=== PATIENT | female | born 1935 | race Caucasian/White ===

== ENCOUNTER 2017-01-14 09:40 | Emergency (ER) | payer MEDICARE, OTHER ==
[~2017-01-14] VITALS: Ht 165.1 cm; Wt 66.8 kg
[~2017-01-14 09:40] MED LIST: ASPI-557 PO; ATOR40TA64 PO; CARV3.123 PO; CLOP75TA33 PO; DIPH1TAB24 PO; LISI-625 PO; PREN1TAB26 PO; RANI150T7 PO
[2017-01-14 09:43] VITALS: Ht 165.1 cm; Wt 66.8 kg
--- OUTSIDE RECORDS SUMMARY | 2017-01-14 09:45 | XMS REPORT | Continuity of care Document ---
Author Author GENERATED, SYSTEM Organization Unknown Address Unknown Phone Unavailable Purpose Hospital Course Allergies, Adverse Reactions, Alerts * Demerol causes Nausea. * Penicillins causes Swelling/Edema. * No Latex Allergy. * No IV Contrast Allergy. Problems * Cardiomyopathy Status:Active. * Coronary Angioplasty Status:Active. Procedures No relevant procedures performed. Medication It is the responsibility of the patient or patient marketing development representative to confirm the list of medications with either the patient's personal care provider or the patient's follow-up care provider to ensure the patient has an appropriate list of medications to take at home. Take These Medications* aspirin 81 mg tablet,chewable, Ordered By: SUZIE RITTER APRN Directions: 1 tablet oral daily * carvedilol 3.125 mg Tablet, Ordered By: SUZIE RITTER APRN Directions: 1 tablet oral twice a day * atorvastatin 40 mg Tablet, Ordered By: SUZIE RITTER APRN Directions: 1 tablet oral daily * clopidogrel 75 mg Tablet, Ordered By: SUZIE RITTER APRN Directions: 1 tablet oral daily * lisinopril 5 mg Tablet, Ordered By: SUZIE RITTER APRN Directions: 1 tablet oral daily Stop Taking These Medications* None Results Chemistry from 01/21/2014 4:06 AMANION GAP 5.6 MMOL/L L (8.0-16.0 MMOL/L) BUN/CREATININE RATIO 24.5 H (9.1-17.0 ) BUN 25 MG/DL H (7-18 MG/DL) CALCIUM 9.7 MG/DL (8.5-10.1 MG/DL) CHLORIDE 108 MMOL/L H (98-107 MMOL/L) CREATININE 1.02 MG/DL H (0.43-0.83 MG/DL) GFRA EST AFR AMER 60 ML/MIN GFR EST NON AFR ALGERIAN 52 ML/MIN GLUCOSE 112 MG/DL H (65-99 MG/DL) POTASSIUM 4.0 MMOL/L (3.5-5.1 MMOL/L) SODIUM 138 MMOL/L (136-145 MMOL/L) TCO2 24.4 MMOL/L (21.0-32.0 MMOL/L) Hematology from 01/21/2014 4:06 AMHEMATOCRIT 31.8 % (31.2-41.9 %) HEMOGLOBIN 10.8 G/DL L (11.0-14.3 G/DL) MCH 28.7 PG (27.0-33.0 PG) MCHC 34.0 G/DL (32.0-36.0 G/DL) MCV 84.4 FL (79.0-98.0 FL) MPV 8.2 FL (7.4-10.4 FL) PLATELET 151 X10e3/UL L (159-386 X10e3/UL) RBC 3.77 X10e6/UL (3.63-4.92 X10e6/UL) RDW 14.0 % (12.3-17.0 %) WBC 7.2 X10e3/UL (3.6-11.2 X10e3/UL) ABSOLUTE BASOPHILS 0.0 X10e3/UL (0.0-0.2 X10e3/UL) AUTOMATED DIFF PERFORMED ABSOLUTE EOSINOPHILS 0.2 X10e3/UL (0.0-0.5 X10e3/UL) ABSOLUTE LYMPHOCYTES 2.6 X10e3/UL (1.0-3.0 X10e3/UL) ABSOLUTE MONOCYTES 0.6 X10e3/UL (0.3-1.0 X10e3/UL) ABSOLUTE NEUTROPHILS 3.8 X10e3/UL (1.8-7.8 X10e3/UL) BASOPHILS 0.5 % EOSINOPHILS 2.1 % LYMPHOCYTES 36.7 % MONOCYTES 8.2 % SEGS 52.5 %
--- OUTSIDE RECORDS SUMMARY | 2017-01-14 09:45 | XMS REPORT | Continuity of care Document ---
Author Author GENERATED, SYSTEM Organization Unknown Address Unknown Phone Unavailable Purpose Hospital Course Allergies, Adverse Reactions, Alerts * Demerol causes Nausea. * Penicillins causes Swelling/Edema. * No Latex Allergy. * No IV Contrast Allergy. Problems No relevant problems exist. Procedures No relevant procedures performed. Medication It is the responsibility of the patient or patient inside outside sales representative to confirm the list of medications with either the patient's personal care provider or the patient's follow-up care provider to ensure the patient has an appropriate list of medications to take at home. Take These Medications* aspirin 81 mg tablet,chewable, Ordered By: CARRI MILLER MD Directions: 1 tablet oral daily * carvedilol 3.125 mg Tablet, Ordered By: CARRI MILLER MD Directions: 1 tablet oral twice a day * lisinopril 5 mg Tablet, Ordered By: CARRI MILLER MD Directions: 1 tablet oral daily * clopidogrel 75 mg Tablet Directions: 1 tablet oral daily Stop Taking These Medications* multi-vitamin oral 1 tablet daily 01/05/14 * omeprazole 20 mg capsule,delayed release(DR/EC) Directions: 1 capsule oral daily before breakfast Results
--- OUTSIDE RECORDS SUMMARY | 2017-01-14 09:45 | XMS REPORT | Continuity of Care Document ---
Author Author [facility] Organization [facility] Address Unknown Phone Unavailable Support Name Relationship Address Phone SHAWN NAPIER MD Caregiver [address] [place] [address] [address] [place] [address] Unavailable MEGGAN OLIVEIRA DO Caregiver [address] [place] [address] [address] [place] [address] Unavailable JUSTINAMANDA BARTONA Next Of Kin [address] [place] [id number] Insurance Providers Guarantor Wojciech Lind Address [address] [place] [address] Email DENIED 16 Payer Medicare Policy Number [id number] Subscriber's Name Wojciech Lind Relationship 18 Self Payer Other A Insurance Policy Number [id number] Subscriber's Name Wojciech Lind Relationship 18 Self Group Number [id number] Directives Directive Response Recorded Date/Time Ordered Resuscitation Status Full Code 11/14/16 8:54am Resuscitation Documents on File No 11/14/16 11:59am DPOA for Healthcare Only No 11/14/16 11:59am Living Will No 11/14/16 11:59am Problems Active Problems Medical Problem Onset Date Status Colon cancer Unknown Acute Diarrhea Unknown Acute Occult blood positive stool Unknown Acute UTI (urinary tract infection) Unknown Acute Past Problems Medical Problem Onset Date Acute bronchitis Unknown Medications Current Home Medications Medication Dose Units Route Directions Days Qty Instructions Start Date Aspirin (Aspir 81) 81 Mg Tablet. 1 Tab Oral Daily 01/03/15 Atorvastatin Calcium 40 Mg Tablet 1 Tab Oral Bedtime 07/28/16 Carvedilol 3.125 Mg Tablet 1 Tab Oral Twice Daily With Meals BEST WITH FOOD. 01/03/15 Clopidogrel Bisulfate (Clopidogrel) 75 Mg Tablet 1 Tab Oral Daily 01/03/15 Diphenoxylate Hcl/Atropine (Diphenoxylate-Atrop 2.5-0.025) 1 Each Tablet 1 Tab Oral Twice A Day 180 11/13/16 Lisinopril 5 Mg Tablet 5 Mg Oral Daily 01/03/15 Vit/Iron Fumarate/Fa ( Vitamins Tablet) 1 Each Tablet 1 Tab Oral Daily 01/26/15 Ranitidine Hcl 150 Mg Tablet 150 Mg Oral Twice A Day Take 1 tablet, by mouth, 2 times a day. 07/28/16 Past Home Medications Medication Directions Ordered Status Ciprofloxacin Hcl (Cipro) 500 Mg Tablet, 250 Mg Oral Every 12 Hours 01/03/15 Discontinued Ciprofloxacin Hcl (Cipro) 500 Mg Tablet, 500 Mg Oral Every 12 Hours 01/03/15 Discontinued Vit A/Vit C/Vit E/Zinc/Copper (Icaps Areds Softgel) 1 Each Capsule, 2 Cap Oral Daily 11/13/16 Discontinued Social History Social History Problem Response Recorded Date/Time Onset Date Status Reason for Hospitalization heart cath 11/15/2016 11:28am Not Applicable Not Applicable Chewing Tobacco Status No 11/13/2016 9:50am Not Applicable Not Applicable Hx Substance Use No 11/13/2016 9:50am Not Applicable Not Applicable Hx Alcohol Use No 11/13/2016 9:50am Not Applicable Not Applicable Has the pt used tobacco in the last 12 months No 11/13/2016 9:50am Not Applicable Not Applicable Query Response Start Date Stop Date Smoking Status Never smoker Hospital Discharge Instructions Instructions: Care Instructions: I was in the hospital because (patient own words): TO GET A HEART CATH Discharge Diet: Resume heart healthy diet Discharge Activity: Limit activity for 2 days. No lifting more than 10 pounds, no pushing or pulling for 1 week. Follow Up Appointments: Follow up with Dr. Napier on: 12/06/16 at 3:10 Pending Lab / Results: No Pending Lab Patient Instructions: Do not drive, operate machinery or drink alcohol for 2 days. Expected Signs/Symptoms: Bruising and tenderness at the site. Notify Physician If: Site is bleeding, abnormal drainage, increased pain or fever of 101.5 or more. During Business Hours:: Call Dr. Napier's office at [phone]. After Business Hours:: Please call [phone] and have the masking machine operator page the physician. Pain Management/Treatment: Over the counter pain medication if needed. Pain Scale Utilized to Educate Patient: 0-10 Pain Scale Wound/Incision Care: Keep site clean and dry. No tub baths or swimming for 1 week. You may shower. Condition at time of discharge: Good Plan of Care Discharge Date 11/15/16 12:00pm Instructions/Education Provided [facility] Heart Cath Trans Rad Prescriptions See Medication Section Functional Status Query Response Date Recorded Mobility Status Ambulatory November 14, 2016 12:00pm Assistive Devices None November 14, 2016 12:00pm Activity Limitations None November 14, 2016 12:00pm Feeding Ability Independent November 14, 2016 12:00pm Toileting Ability Independent November 14, 2016 12:00pm Grooming Ability Independent November 14, 2016 12:00pm Dressing Ability Independent November 14, 2016 12:00pm Driving Ability Independent November 14, 2016 12:00pm Housework Ability Independent November 14, 2016 12:00pm Meal Preparation Ability Independent November 14, 2016 12:00pm Stair Climbing Ability Independent November 14, 2016 12:00pm Ability to complete ADL's impeded by No change November 14, 2016 12:00pm Cognitive/Perceptual Impairments Impaired vision November 14, 2016 12:00pm Visual Assistive Devices Glasses With patient November 14, 2016 12:00pm Preferred Method of Learning Reading Listening November 14, 2016 12:00pm Allergies, Adverse Reactions, Alerts Allergen Type Severity Reaction Status Last Updated Penicillin Allergy Unknown BLOATED Active 07/28/16 Meperidine Allergy Unknown Active 07/28/16 Immunizations Query Response on File Recorded Date/Time Hx Influenza Vaccination Y JUN 2016 11/13/16 9:50am Hx Pneumococcal Vaccination Y PREVNAR 22 SEP 2016 11/13/16 9:50am Hx Influenza Vaccination Y JUN 2016 11/13/16 9:50am Influenza Vaccine Hx JUNE 2016 11/14/16 12:02pm Vital Signs Acute Vital Signs Vital Response Date/Time Temperature (Fahrenheit) 97.5 deg F (96.8 - 99.1) 11/15/2016 3:00am Temperature (Calculated Celsius) 36.96044 degrees C (36.0 - 37.3) 11/15/2016 3:00am Temperature Source Oral 11/15/2016 3:00am Pulse Rate (adult) 91 bpm (60 - 100) 11/15/2016 12:00pm Respiratory Rate 29 breaths/min (10 - 20) 11/15/2016 12:00pm O2 Sat by Pulse Oximetry 98 % (90 - 100) 11/15/2016 10:00am Oxygen Delivery Method Room Air 11/15/2016 10:00am Oxygen Delivery Method Room Air 11/14/2016 4:15pm Blood Pressure 115/56 mm Hg 11/15/2016 10:00am Blood Pressure Source Automatic Cuff 11/15/2016 10:00am Height (Feet) 5 feet 11/14/2016 11:59am Height (Inches) 6.00 inches 11/14/2016 11:59am Weight (Kilograms) 64.400 kg 11/15/2016 8:41am Body Mass Index (BMI) 23.6 11/14/2016 11:59am Results Laboratory Results Test Name Result Units Flags Reference Collection Date/Time Result Date/ Time Comments Total Bilirubin 1.70 MG/DL H 0.20-1.30 10/27/2016 1:10pm 10/27/2016 1: 28pm Alkaline Phosphatase 110 U/L 38-126 10/27/2016 1:1010/27/2016 1: 28pm Total Protein 6.7 G/DL 6.3-8.2 10/27/2016 1:1010/27/2016 1:28pm Albumin 3.9 G/DL 3.5-5.0 10/27/2016 1:1010/27/2016 1:28pm Globulin 2.8 G/DL 2.4-3.6 10/27/2016 1:10pm 10/27/2016 1:28pm Albumin/Globulin Ratio 1.4 RATIO 1.1-2.2 10/27/2016 1:10pm 10/27/2016 1 :28pm Aspartate Amino Transf (AST/SGOT) 31 U/L 14-36 10/27/2016 1:102016 1:28pm Alanine Aminotransferase (ALT/SGPT) 47 U/L 9-52 10/27/2016 1:1010/27 1:28pm Lactate Dehydrogenase 375 U/L 313-618 10/27/2016 1:10pm 10/27/2016 1: 28pm Magnesium Level 1.9 MG/DL 1.6-2.3 10/27/2016 1:10pm 10/27/2016 1:28pm Iron Level 50 UG/DL 37-170 10/27/2016 1:10pm 10/30/2016 1:56am Total Iron Binding Capacity 262 UG/DL 261-497 10/27/2016 1:102016 12:57am Percent Iron Saturation 19 % 9-55 10/27/2016 1:10pm 10/30/2016 1:56am Ferritin 187 NG/ML 11-264 10/27/2016 1:10pm 10/30/2016 2:32am Carcinoembryonic Antigen 1.55 UG/L 0-3.0 10/27/2016 1:10pm 10/27/2016 3 :40pm White Blood Count 6.9 T/MM3 4.5-11.0 11/15/2016 3:57am 11/15/2016 4: 52am Red Blood Count 3.87 M/MM3 L 4.00-5.20 11/15/2016 3:57am 11/15/2016 4: 52am Hemoglobin 11.3 GM/DL L 12-16 11/15/2016 3:57am 11/15/2016 4:52am Hematocrit 35.2 % L 36-46 11/15/2016 3:57am 11/15/2016 4:52am Mean Corpuscular Volume 91.0 UM3 80-100 11/15/2016 3:57am 11/15/2016 4: 52am Mean Corpuscular Hemoglobin 29.2 UUG 26-34 11/15/2016 3:57am 2016 4:52am Mean Corpuscular Hemoglobin Concent 32.1 GM/DL 31-37 11/15/2016 3:57am 11/15/2016 4:52am RDW Standard Deviation 45.1 FL 36.9-50.2 11/15/2016 3:57am 11/15/2016 4 :52am Platelet Count 118 T/MM3 L 130-400 11/15/2016 3:57am 11/15/2016 4:52am Mean Platelet Volume 10.5 UM3 9.4-12.4 11/15/2016 3:57am 11/15/2016 4: 52am Neutrophils (%) (Auto) 57.5 % 33-66 11/15/2016 3:57am 11/15/2016 4: 52am Lymphocytes (%) (Auto) 33.0 % 23-45 11/15/2016 3:57am 11/15/2016 4: 52am Monocytes (%) (Auto) 7.9 % 0-9.0 11/15/2016 3:57am 11/15/2016 4:52am Eosinophils (%) (Auto) 1.2 % 0-4 11/15/2016 3:57am 11/15/2016 4:52am Basophils (%) (Auto) 0.3 % 0-2 11/15/2016 3:57am 11/15/2016 4:52am Immature Granulocyte % (Auto) 0.1 % 0.0-0.5 11/15/2016 3:57am 2016 4:52am Absolute Neutrophils (auto) 4.0 T/MM3 1.8-7.7 11/15/2016 3:57am 2016 4:52am Absolute Lymphocytes (auto) 2.3 T/MM3 1-4.8 11/15/2016 3:57am 2016 4:52am Absolute Monocytes (auto) 0.6 T/MM3 0-0.8 11/15/2016 3:57am 11/15/2016 4:52am Absolute Eosinophils (auto) 0.1 T/MM3 0-0.5 11/15/2016 3:57am 2016 4:52am Absolute Basophils (auto) 0.0 T/MM3 0-0.2 11/15/2016 3:57am 11/15/2016 4:52am Absolute Immature Granulocyte (auto 0.01 T/MM3 0.00-0.03 11/15/2016 3: 57am 11/15/2016 4:52am Icterus Index < 2 0-7 11/15/2016 3:57am 11/15/2016 5:06am Chemistry Specimen Hemolysis < 15 0-25 11/15/2016 3:57am 11/15/2016 5 :06am 0-25: Specimen Exhibited No Hemolysis. Turbidity < 20 0-20 11/15/2016 3:57am 11/15/2016 5:06am Sodium Level 145 MEQ/L H 134-144 11/15/2016 3:57am 11/15/2016 5:06am Potassium Level 3.9 MEQ/L 3.6-5 11/15/2016 3:57am 11/15/2016 5:06am Chloride Level 111 MEQ/L H 98-107 11/15/2016 3:57am 11/15/2016 5:06am Carbon Dioxide Level 25 MEQ/L 22-30 11/15/2016 3:57am 11/15/2016 5: 06am Anion Gap 9 MEQ/L 5-15 11/15/2016 3:57am 11/15/2016 5:06am Blood Urea Nitrogen 22.0 MG/DL H 7-17 11/15/2016 3:57am 11/15/2016 5: 06am Creatinine 0.9 MG/DL D 0.7-1.2 11/15/2016 3:57am 11/15/2016 5:08am BUN/Creatinine Ratio 24 RATIO 6-26 11/15/2016 3:57am 11/15/2016 5:06am Glomerular Filtration Rate Calc 60 11/15/2016 3:57am 11/15/2016 5: 06am Glucose Level 90 MG/DL 65-110 11/15/2016 3:57am 11/15/2016 5:06am Calculated Osmolality 282 MOSM/KG H 261-280 11/15/2016 3:57am 2016 5:06am Calcium Level 10.0 MG/DL 8.4-10.2 11/15/2016 3:57am 11/15/2016 5:06am Procedures Procedure Status Date Provider(s) Ct thorax w/o dye Completed 10/20/16 Ct abd & pelvis w/o contrast Completed 10/20/16 Routine venipuncture Completed 10/27/16 Comprehen metabolic panel Completed 10/27/16 Carcinoembryonic antigen Completed 10/27/16 Assay of ferritin Completed 10/27/16 Assay of iron Completed 10/27/16 Iron binding test Completed 10/27/16 Lactate (ld) (ldh) enzyme Completed 10/27/16 Assay of magnesium Completed 10/27/16 Complete cbc w/auto diff wbc Completed 10/27/16 Encounters Encounter Location Arrival/Admit Date Discharge/Depart Date Attending Provider Departed [facility] 11/14/16 11:25am 11/15/16 12:00pm SHAWN NAPIER MD Registered [facility] 10/27/16 12:36pm NICOL GARAY Registered [facility] 10/20/16 9:02am NICOL GARAY
[2017-01-14] MEDS ORDERED: NORMAL SALINE 1,000 ML IV ONE (09:51)
[2017-01-14] MEDS ORDERED: VIT1CAPS47 PO (09:59)
--- OUTSIDE RECORDS SUMMARY | 2017-01-14 09:59 | XMS REPORT | Continuity of care Document ---
Author Author GENERATED, SYSTEM Organization Unknown Address Unknown Phone Unavailable Purpose Hospital Course Allergies, Adverse Reactions, Alerts * Demerol causes Nausea. * Penicillins causes Swelling/Edema. * No Latex Allergy. * No IV Contrast Allergy. Problems No relevant problems exist. Procedures No relevant procedures performed. Medication It is the responsibility of the patient or patient credit resolution representative to confirm the list of medications [...]
--- OUTSIDE RECORDS SUMMARY | 2017-01-14 09:59 | XMS REPORT | Continuity of care Document ---
[...] the responsibility of the patient or patient service representative to confirm the list of medications [...] AMER 60 ML/MIN GFR EST NON AFR GAMBIAN 52 ML/MIN GLUCOSE 112 MG/DL H (65-99 [...]
[2017-01-14] MEDS ORDERED: ONDANSETRON 4mg/2ml INJECTION IV ONE ×2 (10:00→11:30)
[2017-01-14 10:06] LABS: BASOPHILS % (AUTO) 0.2 % (0-2); EOSINOPHILS % (AUTO) 0.4 % (0-4); HCT - HEMATOCRIT 37.2 % (36-46); HGB - HEMOGLOBIN 12.1 GM/DL (12-16); IMMATURE GRANULOCYTE # (AUTO) 0.01 T/MM3 (0.00-0.03); IMMATURE GRANULOCYTE % (AUTO) 0.1 % (0.0-0.5); LYMPHOCYTES # (AUTO) 3.1 T/MM3 (1-4.8); LYMPHOCYTES % (AUTO) 33.3 % (23-45); MEAN CORPUSCULAR HGB CONC(MCHC 32.5 GM/DL (31-37); MEAN CORPUSCULAR VOLUME 89.2 UM3 (80-100); MEAN PLATELET VOLUME 9.9 UM3 (9.4-12.4); MONOCYTES # (AUTO) 0.6 T/MM3 (0-0.8); MONOCYTES % (AUTO) 5.8 % (0-9.0); NEUTROPHILS #(AUTO)-ABSOLUTE 5.7 T/MM3 (1.8-7.7); NEUTROPHILS % (AUTO) 60.2 % (33-66); RED BLOOD COUNT 4.17 M/MM3 (4.00-5.20); WBC - WHITE BLOOD COUNT 9.4 T/MM3 (4.5-11.0)
[2017-01-14 10:15] LABS: ALBUMIN 4.3 G/DL (3.5-5.0); ALBUMIN/GLOBULIN RATIO 1.7 RATIO (1.1-2.2); ALKALINE PHOSPHATASE 119 U/L (38-126); ALT (SGPT) 74 U/L (9-52); ANION GAP 13 MEQ/L (5-15); AST (SGOT) 38 U/L (14-36); BUN/CREATININE RATIO 20 RATIO (6-26); CALCIUM 10.5 MG/DL (8.4-10.2); CHLORIDE 111 MEQ/L (98-107); CO2 - CARBON DIOXIDE 25 MEQ/L (22-30); GLOMERULAR FILTRATION RATE 53; GLUCOSE 118 MG/DL (65-110); LIPASE 93 U/L (23-300); POTASSIUM 3.9 MEQ/L (3.6-5); SODIUM 149 MEQ/L (134-144); TOTAL PROTEIN 6.9 G/DL (6.3-8.2)
--- NOTE | 2017-01-14 10:17 | NUR ---
RADIOLOGY PT TO RADIOLOGY BY CART AT THIS TIME.
--- NOTE | 2017-01-14 10:25 | NUR ---
RETURN PT RETURNED FROM RADIOLOGY AT THIS TIME. PT NOTED TO BE VOMITING ON ARRIVAL BACK TO ROOM AFTER ZOFRAN ADM. PROVIDER NOTIFIED.
--- NOTE | 2017-01-14 10:34 | NUR ---
PROVIDER DR. HER AT BEDSIDE FOR EXAM.
--- NOTE | 2017-01-14 10:42 | ERPDOC ---
Departure Disposition Decision Date: January 14, 2017 Disposition Decision Time: 11:45 Disposition: 01 DISCHARGED HOME, SELF-CARE Impression Impression Impression: Primary Impression: Nausea & vomiting Vomiting type: unspecified Vomiting Intractability: non-intractable Qualified Codes: R11.2 - Nausea with vomiting, unspecified Additional Impressions: Mild dehydration Constipation Constipation type: unspecified constipation type Qualified Codes: K59.00 - Constipation, unspecified Severity: Mild Condition: Improved Seen By: Physician only Referrals: MEGGAN OLIVEIRA DO (Family) 3 Days Patient Instructions: Acute Nausea and Vomiting (ED) Problems/Meds/Labs Reviewed?: Yes Medications reviewed and manag: Yes Additional Instructions: You have N/V, likely related to the gastroenteritis that is making the rounds. Take the zofran as needed for nausea and drink lots of fluids. Consider taking miralax for your constipation. Follow up with your doctor later this week to ensure that you are getting better and to manage your constipation. Follow up care ordered?: Yes Mental Status: Alert, Oriented Scripts Ondansetron (Zofran Odt) 4 Mg Tab.rapdis 4 MG PO QID Y for NAUSEA &/OR VOMITING, #20 TAB 0 Refills Prov: JANUARYTOMMY DO 01/14/17 HPI - Abdominal Pain General Chief Complaint: Nausea,Vomiting,Diarrhea Stated Complaint: VOMITING Time Seen by Provider: 09:51 Source: patient History/Exam Limitations: no limitations HPI - Abdominal Pain Initial Comments 81yo woman presented to the ER by EMS for N/V. Pt awoke this AM and felt nauseated. When pt sat up, it felt like the room was spinning. Pt has also had some abdominal pain. Occurred At: home Onset: Rapid Duration: 1 hr Quality: cramping Location: epigastric Radiation: no radiation Activities at Onset: none Associated Symptoms: nausea/vomiting Hx of Similar Symptoms: No Allergies: Coded Allergies: Penicillins (Verified Allergy, Unknown, BLOATED, 01/14/17) meperidine (Verified Allergy, Unknown, 01/14/17) Past History Past Medical History Metabolic: hypertension ENMT: vision problems Cardiac: CAD, CHF GI: GERD, IBS, gallbladder disease Hematologic: anemia Surgical History General: colonoscopy, gallbladder, other Cardiac: cardiac stent Family History Family PMH: FOUND: hypertension Vaccines Hx Influenza Vaccination: Yes (JUN 2016) Hx Pneumococcal Vaccination: Yes (PREVNAR 22 SEP 2016) Social History # of Years: 30 Second Hand Exposure: No Quit Date: Sep 10, 1994 Substance Use Type: does not use Alcohol Intake: none Review of Systems GI Upper Abdomen: nausea, pain, vomiting, DENIES: dysphagia, food intolerances, heartburn/indigestion, hematemesis All other Systems All Other Systems: Reviewed and Negative Physical Exam General General Nourishment: well nourished, well developed, appears stated age, no acute distress, adult, thin General Body Habitus: well groomed Vitals and Pain First Documented Vital Signs Date Time Temp Pulse Resp B/P Pulse Ox O2 Delivery O2 Flow Rate FiO2 01/14/17 09:43 97.5 80 16 193/84 100 Room Air Weight: Kilograms: 66.800 Height (feet): 5 Height (inches): 5.00 Triage Pain Scale: RN VS reviewed by Provider: Yes Normal Exams: Head: Normocephalic w/o trauma Eyes: Pupils are PERRLA w/ EOMI, No scleral icterus, irritation ENMT: No facial trauma, nasal exudates, pharyngeal erythema Neck: Full range of motion, without adenopathy, JVD Lymphatic: No lymphadenopathy Musculoskeletal: No tenderness, or deformity noted Integumentary: No rashes, hives, or bruising noted Neurologic: Patient is alert, and oriented Respiratory (brief) Respiratory: FOUND: clear all villeda, equal bilaterally, symmetrical, NOT FOUND : rales, wheezes Cardiovascular (brief) Cardiac: FOUND: regular rate, regular rhythm, NOT FOUND: click, gallop, murmur , pedal edema, peripheral edema, rub Capillary Refill: <2 sec Pulses: all distal extremities, equal, strong Abdomen (brief) Abdominal Brief: FOUND: bowel normo active x4, soft, NOT FOUND: distended, hepatosplenomegaly, pulsatile mass, tender Psychiatric (brief) Psychiatric Brief: FOUND: alert, oriented, NOT FOUND: normal affect (hostile) Differential Diagnoses Considering: Bowel Obstruction, Dehydration, Diverticulitis, Food Poisoning, Gastroenteritis, Hepatitis, Pancreatitis, Toxin Progress Results/Orders Orders Procedure Category Date Status Time Iv Lock (Ed Only) EDM 01/14/17 Transmitted 09:51 Nothing By Mouth (Ed EDM 01/14/17 Transmitted Only) 09:51 Cbc W/Auto LAB 01/14/17 Complete Diff-Reflex Manual 09:51 Cmp - Comprehensive LAB 01/14/17 Complete Metabolic 09:51 Lipase LAB 01/14/17 Complete 09:51 Kub W/Upright RAD 01/14/17 Resulted 09:51 Normal Saline (Normal PHA 01/14/17 Complete Saline Iv) 09:51 Ondansetron Inj PHA 01/14/17 Complete (Zofran) 10:00 Ondansetron Inj PHA 01/14/17 Complete (Zofran) 11:30 Lab Results Laboratory Tests Test 01/14/17 09:59 White Blood Count 9.4T/MM3 Red Blood Count 4.17M/MM3 Hemoglobin 12.1GM/DL Hematocrit 37.2% Mean Corpuscular Volume 89.2UM3 Mean Corpuscular Hemoglobin 29.0UUG Mean Corpuscular Hemoglobin Concent 32.5GM/DL RDW Standard Deviation 44.4FL Platelet Count 143T/MM3 Mean Platelet Volume 9.9UM3 Immature Granulocyte % (Auto) 0.1% Neutrophils (%) (Auto) 60.2% Lymphocytes (%) (Auto) 33.3% Monocytes (%) (Auto) 5.8% Eosinophils (%) (Auto) 0.4% Basophils (%) (Auto) 0.2% Absolute Immature Granulocyte (auto 0.01T/MM3 Absolute Neutrophils (auto) 5.7T/MM3 Absolute Lymphocytes (auto) 3.1T/MM3 Absolute Monocytes (auto) 0.6T/MM3 Absolute Eosinophils (auto) 0.0T/MM3 Absolute Basophils (auto) 0.0T/MM3 Turbidity < 20 Sodium Level 149MEQ/L Potassium Level 3.9MEQ/L Chloride Level 111MEQ/L Carbon Dioxide Level 25MEQ/L Anion Gap 13MEQ/L Blood Urea Nitrogen 20.0MG/DL Creatinine 1.0MG/DL Glomerular Filtration Rate Calc 53 BUN/Creatinine Ratio 20RATIO Glucose Level 118MG/DL Calculated Osmolality 290MOSM/KG Calcium Level 10.5MG/DL Total Bilirubin 2.30MG/DL Icterus Index < 2 Aspartate Amino Transf (AST/SGOT) 38U/L Alanine Aminotransferase (ALT/SGPT) 74U/L Alkaline Phosphatase 119U/L Total Protein 6.9G/DL Albumin 4.3G/DL Globulin 2.6G/DL Albumin/Globulin Ratio 1.7RATIO Lipase 93U/L Chemistry Specimen Hemolysis < 15 Medications Current ED Medications Sodium Chloride (Normal Saline IV) 1,000 ml @ 0 mls/hr Q0M ONCE IV Last administered on 01/14/17 09:56; Start 01/14/17 at 09:51; Stop 01/14/17 at 09:54; Status DC Ondansetron HCl (Zofran) 4 mg O ONCE IV Last administered on 01/14/17 09:57; Start 01/14/17 at 10:00; Stop 01/14/17 at 10:01; Status DC Ondansetron HCl (Zofran) 4 mg O ONCE IV Last administered on 01/14/17 11:24; Start 01/14/17 at 11:30; Stop 01/14/17 at 11:31; Status DC Progress Progress Pt with Hx and PE c/w gastroenteritis. Lab/rad c/w dehydration and constipation. Corrected dehydration with fluids and nausea improved with zofran. Discussed dx, prognosis, tx, and need for f/u with pt and family, who voiced understanding. Pt incredulous that she could have 'diarrhea' around stool burden. Another family member came and requested to discuss pts care. She requested that pt be admitted; discussed how pt did not meet criteria for admission, but offered to contact hospitalist for eval. After learning that pt would have to pay out of pocket for admission if not indicated, pt and daughter decided that they would prefer another dose of anti-emetic and d/c to home. Xray Xray : Xray: KUB Upright Interpretation: Abnormal (Significant constipation; prior cholecystectomy), Interpreted by De TOMMY HER DO January 14, 2017 10:42 TOMMY HER DO January 14, 2017 10:42
--- NOTE | 2017-01-14 10:55 | NUR ---
STATUS PT RESTING IN CART. IVF COMPLETE. PT STILL FEELS "NOT TOO WHOPPIE. IT'S (NAUSEA) STILL THERE."
--- NOTE | 2017-01-14 11:14 | NUR ---
PROVIDER MAY BEDSIDE TO SPEAK WITH PT AND FAMILY.
[2017-01-14] MEDS ORDERED: ONDA4TAB7 PO (11:48)
[2017-01-14 12:04] VITALS: BP 158/70; PULSE 65; RESP 16; TEMP 97.5; O2SAT 98
--- NOTE | 2017-01-14 12:04 | NUR ---
DISCHARGE WRITTEN INSTRUCTIONS WITH [facility] RX REVIEWED AND SENT WITH PT AND DAUGHTER. PT AND DAUGHTER VERBALIZE UNDERSTANDING OF DI AND MEDICATION, DENY QUESTIONS. PT REPORTS STILL FEELING NAUSEATED, BUT HAS NOT VOMITED SINCE SECOND DOSE OF ZOFRAN ADM. PT EXITS ER BY W/C ACCOMP BY FAMILY AT THIS TIME.
--- NOTE | 2017-01-14 17:43 | DI ---
Indication: ITS.REASON: N/V/D PROCEDURE: KUB W/UPRIGHT: Encounter: Initial Comparison: None Findings: The visualized lung bases are clear. There is no free air on the upright view. The bowel gas pattern is nonobstructive and nonspecific. Gas is seen in nondilated small and large bowel to the level of the rectum. Moderate stool is seen throughout the colon. Cholecystectomy clips. Impression: Nonobstructive nonspecific bowel gas pattern. .
== END 2017-01-14 12:04 | disposition home or self-care (01) ==
LOC: ED 09:40
DX: R11.2 Nausea with vomiting, unspecified (principal); E86.0 Dehydration; K59.00 Constipation, unspecified
CPT/HCPCS: 74020; 80053; 83690; 85025; 96361; 96374; 96376; 99284; J2405; J7030

== ENCOUNTER → 2017-02-06 | Outpatient (CLI) | payer MEDICARE, OTHER ==
[~2017-02-06] MED LIST changes: +ONDA4TAB7 PO; +VIT1CAPS47 PO
[2017-02-06 13:30] LABS: BASOPHILS % (AUTO) 0.2 % (0-2); EOSINOPHILS # (AUTO) 0.1 T/MM3 (0-0.5); EOSINOPHILS % (AUTO) 0.8 % (0-4); HCT - HEMATOCRIT 36.5 % (36-46); IMMATURE GRANULOCYTE # (AUTO) 0.01 T/MM3 (0.00-0.03); IMMATURE GRANULOCYTE % (AUTO) 0.1 % (0.0-0.5); LYMPHOCYTES # (AUTO) 3.7 T/MM3 (1-4.8); LYMPHOCYTES % (AUTO) 39.9 % (23-45); MEAN CORPUSCULAR HGB 29.9 UUG (26-34); MEAN CORPUSCULAR HGB CONC(MCHC 32.9 GM/DL (31-37); MEAN CORPUSCULAR VOLUME 90.8 UM3 (80-100); MEAN PLATELET VOLUME 9.8 UM3 (9.4-12.4); MONOCYTES # (AUTO) 0.7 T/MM3 (0-0.8); MONOCYTES % (AUTO) 7.9 % (0-9.0); NEUTROPHILS #(AUTO)-ABSOLUTE 4.8 T/MM3 (1.8-7.7); NEUTROPHILS % (AUTO) 51.1 % (33-66); RED BLOOD COUNT 4.02 M/MM3 (4.00-5.20); WBC - WHITE BLOOD COUNT 9.3 T/MM3 (4.5-11.0)
[2017-02-06 13:39] LABS: ALBUMIN 4.3 G/DL (3.5-5.0); ALBUMIN/GLOBULIN RATIO 1.7 RATIO (1.1-2.2); ALKALINE PHOSPHATASE 112 U/L (38-126); ALT (SGPT) 59 U/L (9-52); ANION GAP 12 MEQ/L (5-15); AST (SGOT) 31 U/L (14-36); BUN/CREATININE RATIO 18 RATIO (6-26); CALCIUM 10.5 MG/DL (8.4-10.2); CHLORIDE 107 MEQ/L (98-107); CO2 - CARBON DIOXIDE 25 MEQ/L (22-30); GLOMERULAR FILTRATION RATE 53; GLUCOSE 98 MG/DL (65-110); LDH 411 U/L (313-618); MAGNESIUM 1.9 MG/DL (1.6-2.3); POTASSIUM 4.4 MEQ/L (3.6-5); SODIUM 144 MEQ/L (134-144); TOTAL PROTEIN 6.8 G/DL (6.3-8.2)
== END ==
LOC: LAB 12:41
PROVIDERS: ATTEND Internal Medicine Hematology & Oncology
DX: C18.0 Malignant neoplasm of cecum (principal)
CPT/HCPCS: 36415; 80053; 83615; 83735; 85025